=== PATIENT | female | born 1985 | race Caucasian/White ===

== ENCOUNTER 2018-07-17 17:46 | Emergency (ER) | payer OTHER ==
[2018-07-17 17:56] VITALS: BP 99/65
[2018-07-17] MEDS ORDERED: DEXAMETHASONE SOD PHOS INJ 10 MG/1 ML VIAL IM ONE (18:54)
[2018-07-17] MEDS ORDERED: LIDOCAINE 5% (700 MG) TRANSDERMAL ADH..PATCH TP ONE (18:54)
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
== END 2018-07-17 19:42 | disposition home or self-care (01) ==
LOC: ER 17:46
DX: M54.5 Low back pain (principal); G89.29 Other chronic pain; M54.9 Dorsalgia, unspecified; E03.9 Hypothyroidism, unspecified
CPT/HCPCS: 99283; 96372; J1100